=== PATIENT | male | born 1995 | race Caucasian/White ===

== ENCOUNTER 2024-01-16 02:30 | Emergency (ER) | payer OTHER ==
[~2024-01-16] VITALS: Ht 177.8 cm; Wt 79.4 kg
[2024-01-16] MEDS ORDERED: KETOROLAC TROMETHAMINE INJ 30 MG/ML VIAL ONE (03:52)
[2024-01-16] MEDS: KETOROLAC TROMETHAMINE INJ 30 MG/ML VIAL IM ONE (03:57)
[2024-01-16 04:50] VITALS: BP 120/81; TEMP 98.2; O2SAT 99
== END 2024-01-16 04:51 | disposition home or self-care (01) ==
LOC: ER 02:37
DX: M25.572 Pain in left ankle and joints of left foot (principal)
CPT/HCPCS: 99284; 96372; 73610; 73630; J1885